=== PATIENT | male | born 1935 | race Caucasian/White ===

== ENCOUNTER 2019-08-03 14:55 | Emergency (ER) | payer MEDICARE ==
--- NOTE | 2019-08-03 15:19 | ED Physician Documentation ---
History of Present Illness - Stated complaint Stated Complaint: MHE - Additonal information Additional information: This is an 84-year-old male who presents with depression and suicidal ideation. Patient states that there is been a number of stressful things with his family recently. It sounds like he is not getting along with his in-laws, his son is diabetic and has been having some health issues, other family members in the intensive care unit. Patient lives by himself and is fairly isolated, he recently started Meals on Wheels, and he states that that interaction has been more helpful for him. He has never been a person and has had depression, but he states that he feels that he is getting old, and that he has been considering the end of his life recently. He states that he has many firearms at his home, will he does not have a plan to kill himself at this time, he states that it would be easy to shoot himself if he decided to. He recently was diagnosed with head lice, and he started some Nix treatment for that, and he thinks that this medication made him feel more "foggy headed", so he stopped using it. Otherwise he denies any new medications Review of Systems Constitutional: denies: Fever Eyes: denies: Loss of vision Cardiac: denies: Chest pain / pressure GI: denies: Abdominal Pain : denies: Dysuria Neurologic: denies: Generalized weakness Psychiatric: reports: Depressed PD PAST MEDICAL HISTORY - Past Medical History Cardiovascular: Atrial fibrillation Respiratory: None Endocrine/Autoimmune: None GI: None : Benign prostate hypertrophy HEENT: None Psych: None Musculoskeletal: Chronic back pain Derm: None - Past Surgical History Past Surgical History: Yes - Present Medications Home Medications: Ambulatory Orders Medication Instructions Recorded Confirmed Calcium Carbonate [Calcium] 600 mg PO DAILY 03/21/13 03/22/14 Cholestyramine [Cholestyramine 5 gm MC 03/21/13 03/22/14 Resin] Digoxin 250 mcg PO DAILY 03/21/13 08/03/19 Doxazosin [Cardura] 8 mg PO DAILY 03/21/13 08/03/19 Finasteride 5 mg PO DAILY 03/21/13 08/03/19 [place]-3/Dha/Epa/Fish Oil [Fish Oil] 1,000 mg PO DAILY 03/21/13 08/03/19 Pravastatin Sodium [Pravachol] 20 mg PO DAILY 03/21/13 08/03/19 Warfarin [Coumadin] 5 mg PO 1400 03/21/13 08/03/19 [id number] CD [Cardizem Cd] 180 mg PO DAILY 03/21/13 08/03/19 Melatonin 3 mg PO DAILY PM PRN #10 tablet 08/03/19 Tamsulosin [Flomax] 0.4 mg PO DAILY #14 capsule 08/03/19 - Allergies Allergies/Adverse Reactions: Allergies Allergy/AdvReac Type Severity Reaction Status Date / Time Penicillins Allergy Intermediate Respiratory Verified 08/03/19 15:20 Sulfa (Sulfonamide Allergy Intermediate Hives Verified 08/03/19 15:20 Antibiotics) - Social History Does the pt smoke?: No Smoking Status: Never smoker Does the pt drink ETOH?: No Does the pt have substance abuse?: No - Immunizations Immunizations are current?: Yes PD ED PE NORMAL - Vitals Vital signs reviewed: Yes - General General: Alert and oriented X 3, No acute distress - HEENT HEENT: PERRL - Neck Neck: Supple, no meningeal sign - Cardiac Cardiac: RRR - Respiratory Respiratory: No respiratory distress, Clear bilaterally - Abdomen Abdomen: Soft, Non tender - Derm Derm: Warm and dry - Extremities Extremities: No deformity - Neuro Neuro: Alert and oriented X 3, No motor deficit, No sensory deficit, Normal speech - Psych Psych: Other (Fairly normal affect, appropriate in conversation. No RSI. No current SI.) Results - Vitals Vitals: Oxygen O2 Source Room air - Labs Labs: Laboratory Tests 08/03/19 08/03/19 08/03/19 15:30 15:30 15:30 WBC 8.7 RBC 4.50 L Hgb 14.3 Hct 43.8 MCV 97.3 H MCH 31.8 H MCHC 32.6 RDW 12.5 Plt Count 185 MPV 8.9 Neut # (Auto) 6.1 Lymph # (Auto) 1.5 [place] # (Auto) 0.9 Eos # (Auto) 0.1 Baso # (Auto) 0.1 Absolute Nucleated RBC 0.00 Nucleated RBC % 0.0 Sodium 138 Potassium 4.3 Chloride 99 L Carbon Dioxide 29 Anion Gap 10.0 BUN 29 H Creatinine 1.0 Estimated GFR (MDRD) 72 L Glucose 104 H Calcium 9.4 Total Bilirubin 0.7 AST 22 ALT 19 Alkaline Phosphatase 56 Total Protein 7.6 Albumin 4.4 Globulin 3.2 Albumin/Globulin Ratio 1.4 Lipase 46 TSH 2.23 Urine Color Urine Clarity Urine pH Ur Specific [place] Urine Protein Urine Glucose (UA) Urine Ketones Urine Occult Blood Urine Nitrite Urine Bilirubin Urine Urobilinogen Ur Leukocyte Esterase Ur Microscopic Review Urine Culture Comments Salicylates < 6.0 Urine Opiates Screen Ur Oxycodone Screen Urine Methadone Screen Ur Propoxyphene Screen Acetaminophen < 10 L Ur Barbiturates Screen Ur Tricyclics Screen Ur Phencyclidine Scrn Ur Amphetamine Screen U Methamphetamines Scrn U Benzodiazepines Scrn Urine Cocaine Screen U Cannabinoids Screen Ethyl Alcohol < 5.0 08/03/19 15:35 WBC RBC Hgb Hct MCV MCH MCHC RDW Plt Count MPV Neut # (Auto) Lymph # (Auto) [place] # (Auto) Eos # (Auto) Baso # (Auto) Absolute Nucleated RBC Nucleated RBC % Sodium Potassium Chloride Carbon Dioxide Anion Gap BUN Creatinine Estimated GFR (MDRD) Glucose Calcium Total Bilirubin AST ALT Alkaline Phosphatase Total Protein Albumin Globulin Albumin/Globulin Ratio Lipase TSH Urine Color YELLOW Urine Clarity CLEAR Urine pH 5.5 Ur Specific [place] >=1.030 H Urine Protein NEGATIVE Urine Glucose (UA) NEGATIVE Urine Ketones NEGATIVE Urine Occult Blood NEGATIVE Urine Nitrite NEGATIVE Urine Bilirubin NEGATIVE Urine Urobilinogen 0.2 (NORMAL) Ur Leukocyte Esterase NEGATIVE Ur Microscopic Review NOT INDICATED Urine Culture Comments NOT INDICATED Salicylates Urine Opiates Screen NEGATIVE Ur Oxycodone Screen NEGATIVE Urine Methadone Screen NEGATIVE Ur Propoxyphene Screen NEGATIVE Acetaminophen Ur Barbiturates Screen NEGATIVE Ur Tricyclics Screen NEGATIVE Ur Phencyclidine Scrn NEGATIVE Ur Amphetamine Screen NEGATIVE U Methamphetamines Scrn NEGATIVE U Benzodiazepines Scrn NEGATIVE Urine Cocaine Screen NEGATIVE U Cannabinoids Screen NEGATIVE Ethyl Alcohol PD MEDICAL DECISION MAKING - ED course Complexity details: considered differential (Depression, SI, thyroid disturbance, substance use) ED course: Labs are unremarkable, TSH normal, UA without signs of infection. Talking with patient it sounds like he has been feeling stressed and isolated, and has been thinking about suicide from time to time, and although he is not suicidal at this time he does have access to firearms making him somewhat higher risk. He states these are locked away and he is planning to give them away. He is very insightful and reasonable on my interview. Social work was consulted, and de veloped a plan for safe discharge. Patient states that getting up to urinate and having poor sleep are negatively affecting his quality of life, and I will prescribe a short course of tamsulosin and melatonin to trial while he waits to follow up on these issues with his PCP. He is feeling upbeat and with this plan for close outpatient follow up and establishing with mental health provider he feels safe and social work also agrees that he is safe for discharge. I discussed return precautions and reviewed measures for safety with him once more, and he was discharged home. Departure - Departure Disposition: Home, Self Care Clinical Impression: Suicidal ideation Condition: Good Instructions: Suicide Warning Signs Self Follow-Up: Jake Cunha MD [Primary Care Provider] - Within 1 week Prescriptions: Melatonin 3 mg PO DAILY PM PRN #10 tablet PRN Reason: Insomnia Tamsulosin [Flomax] 0.4 mg PO DAILY #14 capsule Comments: You were seen today for some thoughts of suicide. If you develop any worsening feelings of suicide, or if you are thinking about hurting yourself, please call 911, or return to the emergency department. There is also a helpline/suicide prevention Lifeline at which you may call. You may try the Flomax for your urinary frequency at night, and the melatonin for your difficulty sleeping, please discuss these medications with your primary care provider. Please continue to keep your guns locked up, ideally in a way that you do not have access to them at all. Please follow-up with your primary care provider as soon as possible. Discharge Date/Time: 08/03/19 17:26
[2019-08-03 15:20] VITALS: BP 137/95
[2019-08-03 15:34] LABS: BASOPHILS # (AUTO) 0.1 10^3/uL (0.0-0.1); BASOPHILS % (AUTO) 0.7 %; EOSINOPHILS # (AUTO) 0.1 10^3/uL (0.0-0.7); EOSINOPHILS % (AUTO) 0.8 %; HGB - HEMOGLOBIN 14.3 g/dL (14.0-18.0); LYMPHOCYTES # (AUTO) 1.5 10^3/uL (1.5-3.5); LYMPHOCYTES % (AUTO) 17.8 %; MEAN CORPUSCULAR HEMOGLOBIN 31.8 pg (27.0-31.0); MEAN CORPUSCULAR HGB CONC 32.6 g/dL (32.0-36.0); MEAN CORPUSCULAR VOLUME 97.3 fL (80.0-94.0); MEAN PLATELET VOLUME 8.9 fL (7.4-11.4); MONOCYTES # (AUTO) 0.9 10^3/uL (0.0-1.0); MONOCYTES % (AUTO) 10.2 %; NEUTROPHILS # (AUTO) 6.1 10^3/uL (1.5-6.6); NEUTROPHILS % (AUTO) 70.2 %; PLT - PLATELET COUNT 185 10^3/uL (130-450); RED CELL DISTRIBUTION WIDTH 12.5 % (12.0-15.0); WHITE BLOOD COUNT 8.7 x10^3/uL (4.8-10.8)
[2019-08-03 15:45] LABS: MUDS CUTOFF CONCENTRATIONS CUTOFF CONC BELOW:
[2019-08-03 15:50] LABS: ACETAMINOPHEN < 10 ug/mL (10-30); ALBUMIN 4.4 g/dL (3.2-5.5); ALBUMIN/GLOBULIN RATIO 1.4 (1.0-2.2); ALKALINE PHOSPHATASE 56 IU/L (42-121); ALT ALANINE AMINOTRANSFERASE 19 IU/L (10-60); AST ASPARTATE AMINOTRANSFERASE 22 IU/L (10-42); BILIRUBIN,TOTAL 0.7 mg/dL (0.2-1.0); BUN - BLOOD UREA NITROGEN 29 mg/dL (6-20); CALCIUM 9.4 mg/dL (8.5-10.3); CARBON DIOXIDE - CO2 29 mmol/L (21-32); CHLORIDE 99 mmol/L (101-111); GFR - MDRD 72 (>89); GLUCOSE 104 mg/dL (70-100); LIPASE 46 U/L (22-51); SALICYLATE < 6.0 mg/dL; SODIUM 138 mmol/L (135-145); TOTAL PROTEIN 7.6 g/dL (6.7-8.2)
[2019-08-03 16:07] LABS: BILIRUBIN,URINE NEGATIVE (NEGATIVE); GLUCOSE, URINE (UA) NEGATIVE (NEGATIVE); KETONES,URINE (UA) NEGATIVE (NEGATIVE); LEUKOCYTE ESTERASE, URINE NEGATIVE (NEGATIVE); NITRITE,URINE NEGATIVE (NEGATIVE); OCCULT BLOOD,URINE NEGATIVE (NEGATIVE); PH,URINE 5.5 PH (5.0-7.5); PROTEIN,URINE NEGATIVE (NEGATIVE); UROBILINOGEN,URINE 0.2 (NORMAL) E.U./dL (NORMAL)
[2019-08-03 16:10] LABS: CLARITY,URINE CLEAR (CLEAR)
[2019-08-03 16:25] LABS: METHADONE SCREEN, URINE NEGATIVE (NEGATIVE); OXYCODONE SCREEN, URINE NEGATIVE (NEGATIVE); PROPOXYPHENE SCREEN, URINE NEGATIVE (NEGATIVE)
[2019-08-03 16:26] LABS: AMPHETAMINE SCREEN,URINE NEGATIVE (NEGATIVE); BENZODIAZEPINES SCREEN, URINE NEGATIVE (NEGATIVE); COCAINE SCREEN URINE NEGATIVE (NEGATIVE); METHAMPHETAMINES SCREEN, URINE NEGATIVE (NEGATIVE); OPIATE SCREEN, URINE NEGATIVE (NEGATIVE); TRICYCLIC ANTIDEPRESSANT,URINE NEGATIVE (NEGATIVE)
== END 2019-08-03 17:26 | disposition home or self-care (01) ==
LOC: ED 14:55
DX: R45.851 Suicidal ideations (principal); I48.91 Unspecified atrial fibrillation; Z79.01 Long term (current) use of anticoagulants
CPT/HCPCS: 36415; 80053; 80306; 80307; 80320; 80329; 81001; 81003; 83690; 84443; 85025; 87086; 99283

== ENCOUNTER 2019-08-22 11:23 | Outpatient (CLI) | payer MEDICARE ==
--- NOTE | 2019-08-23 00:59 | XRAY Report ---
Reason: COPD Procedure Date: 08/22/2019 Accession Number: [id number] / [id number] Procedure: XRN - Chest 2 View X-Ray CPT Code: 12241 Final Report FULL RESULT: EXAM: CHEST RADIOGRAPHY EXAM DATE: 08/22/2019 11:43 AM. CLINICAL HISTORY: COPD. COMPARISON: CHEST 2 VIEW PA/LAT 10/29/2015 11:32 AM. TECHNIQUE: 2 views. FINDINGS: Lungs/Pleura: No focal opacities evident. No pleural effusion. No pneumothorax. Normal volumes. Mediastinum: Mild cardiomegaly, increased compared to prior. No acute pulmonary findings are seen. IMPRESSION: Mild cardiomegaly, increased compared to prior. No acute pulmonary findings are seen. RADIA
== END 2019-08-22 11:24 | disposition home or self-care (01) ==
LOC: DI.N 11:23
PROVIDERS: ATTEND Internal Medicine
DX: J44.9 Chronic obstructive pulmonary disease, unspecified (principal); I51.7 Cardiomegaly
CPT/HCPCS: 71046

== ENCOUNTER 2019-09-12 11:48 | Outpatient (CLI) | payer MEDICARE ==
--- NOTE | 2019-09-13 09:19 | CT Report ---
Reason: COGNITIVE DECLINE Procedure Date: 09/12/2019 Accession Number: [id number] / [id number] Procedure: CT - HEAD WO CPT Code: Final Report FULL RESULT: EXAM: CT HEAD WITHOUT CONTRAST EXAM DATE: 09/12/2019 12:15 PM CLINICAL HISTORY: Cognitive decline.Priors: None. COMPARISON: None. TECHNIQUE: Multiaxial CT images were obtained from the foramen magnum to the vertex. Reformats: Sagittal and coronal. IV contrast: None. In accordance with CT protocol optimization, one or more of the following dose reduction techniques were utilized for this exam: automated exposure control, adjustment of mA and/or KV based on patient size, or use of iterative reconstructive technique. FINDINGS: Parenchyma: No acute intraparenchymal hemorrhage. No evidence of mass, midline shift. [place]arosa-white differentiation is distinct. Extraaxial Spaces: Basal cisterns are preserved. No subdural or epidural collections identified. Ventricles: Normal in size and position. Sinuses and Orbits: Imaged paranasal sinuses, orbits, and mastoids show no significant abnormality. Bones: No evidence of fracture or calvarial defect. Other: None. IMPRESSION: No acute intracranial abnormality. RADIA
== END 2019-09-12 11:49 | disposition home or self-care (01) ==
LOC: DI 11:48
PROVIDERS: ATTEND Internal Medicine
DX: R41.81 Age-related cognitive decline (principal); J44.9 Chronic obstructive pulmonary disease, unspecified
CPT/HCPCS: 70450

== ENCOUNTER 2019-10-04 10:00 | Emergency (ER) | payer MEDICARE ==
[2019-10-04 10:41] LABS: BASOPHILS # (AUTO) 0.1 10^3/uL (0.0-0.1); BASOPHILS % (AUTO) 0.7 %; EOSINOPHILS # (AUTO) 0.1 10^3/uL (0.0-0.7); EOSINOPHILS % (AUTO) 0.7 %; HGB - HEMOGLOBIN 15.4 g/dL (14.0-18.0); LYMPHOCYTES # (AUTO) 1.3 10^3/uL (1.5-3.5); LYMPHOCYTES % (AUTO) 16.8 %; MEAN CORPUSCULAR HEMOGLOBIN 33.3 pg (27.0-31.0); MEAN CORPUSCULAR HGB CONC 34.7 g/dL (32.0-36.0); MEAN CORPUSCULAR VOLUME 96.1 fL (80.0-94.0); MEAN PLATELET VOLUME 9.2 fL (7.4-11.4); MONOCYTES # (AUTO) 0.6 10^3/uL (0.0-1.0); MONOCYTES % (AUTO) 8.1 %; NEUTROPHILS # (AUTO) 5.5 10^3/uL (1.5-6.6); NEUTROPHILS % (AUTO) 73.3 %; PLT - PLATELET COUNT 176 10^3/uL (130-450); RED BLOOD COUNT 4.62 10^6/uL (4.70-6.10); RED CELL DISTRIBUTION WIDTH 12.1 % (12.0-15.0); WHITE BLOOD COUNT 7.4 x10^3/uL (4.8-10.8)
[2019-10-04 10:47] LABS: INR 2.4 (0.8-1.2)
[2019-10-04 10:54] LABS: ALBUMIN 4.3 g/dL (3.2-5.5); ALBUMIN/GLOBULIN RATIO 1.5 (1.0-2.2); BILIRUBIN,TOTAL 1.1 mg/dL (0.2-1.0); CREATININE 1.1 mg/dL (0.6-1.2); TOTAL PROTEIN 7.2 g/dL (6.7-8.2)
[2019-10-04] MEDS ORDERED: FAMOTIDINE 20 MG/2 ML VIAL IVP STA (11:21)
[2019-10-04] MEDS ORDERED: SODIUM CHLORIDE 0.9% 1,000 ML IV ONE (11:21)
[2019-10-04] MEDS ORDERED: ONDANSETRON 4 MG/2 ML VIAL IVP STA (11:21)
[2019-10-04] MEDS ORDERED: IOVERSOL 320 100 ML VIAL IVP ONE ×2 (11:26→11:49)
--- NOTE | 2019-10-04 12:05 | CT Report ---
Reason: nausea/weight loss/abd pains Procedure Date: 10/04/2019 Accession Number: [id number] / [id number] Procedure: CT - Abdomen/Pelvis W CPT Code: Final Report FULL RESULT: EXAM: CT ABDOMEN AND PELVIS EXAM DATE: 10/04/2019 11:48 AM. CLINICAL HISTORY: Nausea/weight loss/abd pains. COMPARISONS: None. TECHNIQUE: Routine helical CT imaging was performed through the abdomen and pelvis. IV contrast: OPTI 320 100ML. Enteric contrast: No. Reconstructions: Coronal and sagittal. In accordance with CT protocol optimization, one or more of the following dose reduction techniques were utilized for this exam: automated exposure control, adjustment of mA and/or KV based on patient size, or use of iterative reconstructive technique. FINDINGS: Lung Bases: Coronary artery calcifications. Liver: No masses. Gallbladder/Bile Ducts: Unremarkable. Spleen: Normal. Pancreas: Normal. Adrenal Glands: Normal. Kidneys: Left lower renal pole cyst measures 2.2 cm. Nonobstructive left renal calculus measures 0.3 cm. Peritoneal Cavity/Bowel: No evidence for small bowel obstruction. The appendix is well visualized and normal. Pelvic Organs: The bladder and visualized pelvic organs are within normal limits. Vasculature: Severe atherosclerotic calcifications of the infrarenal abdominal aorta, without evidence of aneurysm or dissection. Bones: No significant abnormality. Other: No lymphadenopathy. IMPRESSION: No CT evidence for acute intra-abdominal process. RADIA
[2019-10-04 12:24] LABS: BILIRUBIN,URINE NEGATIVE (NEGATIVE); GLUCOSE, URINE (UA) NEGATIVE (NEGATIVE); KETONES,URINE (UA) 15 mg/dL (NEGATIVE); LEUKOCYTE ESTERASE, URINE NEGATIVE (NEGATIVE); NITRITE,URINE NEGATIVE (NEGATIVE); OCCULT BLOOD,URINE NEGATIVE (NEGATIVE); PROTEIN,URINE NEGATIVE (NEGATIVE); UROBILINOGEN,URINE 1 (NORMAL) E.U./dL (NORMAL)
[2019-10-04 12:34] LABS: CLARITY,URINE CLEAR (CLEAR)
[2019-10-04 13:30] VITALS: BP 155/90
--- NOTE | 2019-10-04 14:10 | ED Physician Documentation ---
PD HPI ALTERED MENTAL STATUS - Stated complaint Stated Complaint: SHAKES/WEAKNESS - Chief complaint Chief Complaint: Neuro - History obtained from History obtained from: Patient, Friend - History of Present Illness Timing - onset: How many months ago (3-4) Timing - duration: Months Timing - details: Gradual onset Quality / character: Other (he has had less appetite, general weakness, poor intake, and poor sleep, accompanied by weight loss over the past few months. He says about 30 lb weight loss (about 4 lbs per week).) Associated symptoms: General weakness. No: Fever, Headache, Dyspnea, Cough, NVD (just no appetite) Contributing factors: Known dementia (developing). No: Recent med change (has been on same meds for long time. Had an antidepressant added about 2 months ago without improvement.) Basline status: Alert and oriented X 3, Ambulatory, Independent. No: Diminished alertness Similar symptoms before: No diagnosis Recently seen: Clinic (seen by PMD couple weeks ago without testing done, per patient.) Review of Systems Constitutional: denies: Fever, Chills, Myalgias Nose: denies: Rhinorrhea / runny nose, Congestion Throat: denies: Sore throat Respiratory: denies: Cough GI: denies: Nausea (but has had no appetite and says eating a small amount has him feeling full.), Vomiting, Diarrhea, Bloody / black stool Musculoskeletal: denies: Neck pain, Back pain Neurologic: reports: Generalized weakness. denies: Focal weakness, Numbness, Altered mental status, Headache Endocrine: reports: Weight loss. denies: Weight gain, Easy bruising / bleeding PD PAST MEDICAL HISTORY - Past Medical History Past Medical History: Yes Cardiovascular: Atrial fibrillation Respiratory: None Neuro: Alzhiemer's Endocrine/Autoimmune: None GI: None : Benign prostate hypertrophy HEENT: None Psych: None Musculoskeletal: Chronic back pain Derm: None - Past Surgical History Past Surgical History: Yes - Present Medications Home Medications: Ambulatory Orders Medication Instructions Recorded Confirmed Calcium Carbonate [Calcium] 600 mg PO DAILY 03/21/13 03/22/14 Cholestyramine [Cholestyramine 5 gm MC 03/21/13 03/22/14 Resin] Digoxin 250 mcg PO DAILY 03/21/13 08/03/19 Doxazosin [Cardura] 8 mg PO DAILY 03/21/13 08/03/19 Finasteride 5 mg PO DAILY 03/21/13 08/03/19 [place]-3/Dha/Epa/Fish Oil [Fish Oil] 1,000 mg PO DAILY 03/21/13 08/03/19 Pravastatin Sodium [Pravachol] 20 mg PO DAILY 03/21/13 08/03/19 Warfarin [Coumadin] 5 mg PO 1400 03/21/13 08/03/19 [id number] CD [Cardizem Cd] 180 mg PO DAILY 03/21/13 08/03/19 Melatonin 3 mg PO DAILY PM PRN #10 tablet 08/03/19 Tamsulosin [Flomax] 0.4 mg PO DAILY #14 capsule 08/03/19 Cholecalciferol (Vitamin D3) 2,000 unit PO DAILY #60 capsule 10/04/19 [Vitamin D] Famotidine 20 mg PO DAILY #30 tablet 10/04/19 - Allergies Allergies/Adverse Reactions: Allergies Allergy/AdvReac Type Severity Reaction Status Date / Time Penicillins Allergy Intermediate Respiratory Verified 10/04/19 10:07 Sulfa (Sulfonamide Allergy Intermediate Hives Verified 10/04/19 10:07 Antibiotics) - Social History Does the pt smoke?: No Smoking Status: Never smoker Does the pt drink ETOH?: No Does the pt have substance abuse?: No - Immunizations Immunizations are current?: Yes PD ED PE NORMAL - Vitals Vital signs reviewed: Yes - General General: Alert and oriented X 3, No acute distress, Well developed/nourished - HEENT HEENT: Ears normal, Moist mucous membranes, Pharynx benign - Neck Neck: Supple, no meningeal sign, No adenopathy - Cardiac Cardiac: RRR, No murmur - Respiratory Respiratory: Clear bilaterally - Abdomen Abdomen: Normal bowel sounds, Soft, Non tender, Non distended - Male Male : Deferred - Rectal Rectal: Deferred - Back Back: No CVA TTP - Derm Derm: Normal color, Warm and dry - Extremities Extremities: No deformity, No tenderness to palpate, No edema, No calf tenderness / cord - Neuro Neuro: Alert and oriented X 3, No motor deficit, Normal speech Eye Opening: Spontaneous Motor: Obeys Commands Verbal: Oriented GCS Score: 15 - Psych Psych: Normal mood Results - Vitals Vitals: Vital Signs - 24 hr 10/04/19 10/04/19 10/04/19 10:08 10:48 11:30 Temperature 36.5 C Heart Rate 93 68 68 Respiratory 15 16 16 Rate Blood Pressure 156/97 H 152/89 H 145/110 H O2 Saturation 96 98 96 10/04/19 10/04/19 10/04/19 12:48 13:29 13:40 Temperature 36.0 C L Heart Rate 98 88 Respiratory 9 L 15 Rate Blood Pressure 162/92 H 155/90 H O2 Saturation 18 L 99 Oxygen O2 Source Room air - Labs Labs: Laboratory Tests 10/04/19 10/04/19 10/04/19 10:11 10:19 10:19 WBC 7.4 RBC 4.62 L Hgb 15.4 Hct 44.4 MCV 96.1 H MCH 33.3 H MCHC 34.7 RDW 12.1 Plt Count 176 MPV 9.2 Neut # (Auto) 5.5 Lymph # (Auto) 1.3 L [place] # (Auto) 0.6 Eos # (Auto) 0.1 Baso # (Auto) 0.1 Absolute Nucleated RBC 0.00 Nucleated RBC % 0.0 PT 26.0 H INR 2.4 H Sodium Potassium Chloride Carbon Dioxide Anion Gap BUN Creatinine Estimated GFR (MDRD) Glucose POC Whole Bld Glucose 95 Lactic Acid Calcium Magnesium Total Bilirubin AST ALT Alkaline Phosphatase Troponin I High Sens B-Natriuretic Peptide Total Protein Albumin Globulin Albumin/Globulin Ratio Lipase TSH Urine Color Urine Clarity Urine pH Ur Specific [place] Urine Protein Urine Glucose (UA) Urine Ketones Urine Occult Blood Urine Nitrite Urine Bilirubin Urine Urobilinogen Ur Leukocyte Esterase Ur Microscopic Review Urine Culture Comments 10/04/19 10/04/19 10/04/19 10:19 12:05 12:22 WBC RBC Hgb Hct MCV MCH MCHC RDW Plt Count MPV Neut # (Auto) Lymph # (Auto) [place] # (Auto) Eos # (Auto) Baso # (Auto) Absolute Nucleated RBC Nucleated RBC % PT INR Sodium 139 Potassium 3.9 Chloride 101 Carbon Dioxide 28 Anion Gap 10.0 BUN 27 H Creatinine 1.1 Estimated GFR (MDRD) 64 L Glucose 95 POC Whole Bld Glucose Lactic Acid Calcium 9.0 Magnesium 2.0 Total Bilirubin 1.1 H AST 21 ALT 17 Alkaline Phosphatase 48 Troponin I High Sens B-Natriuretic Peptide Total Protein 7.2 Albumin 4.3 Globulin 2.9 Albumin/Globulin Ratio 1.5 Lipase 46 TSH Urine Color YELLOW Urine Clarity CLEAR Urine pH 7.0 Ur Specific [place] 1.010 Urine Protein NEGATIVE Urine Glucose (UA) NEGATIVE Urine Ketones 15 H Urine Occult Blood NEGATIVE Urine Nitrite NEGATIVE Urine Bilirubin NEGATIVE Urine Urobilinogen 1 (NORMAL) Ur Leukocyte Esterase NEGATIVE Ur Microscopic Review NOT INDICATED Urine Culture Comments NOT INDICATED 10/04/19 10/04/19 10/04/19 12:22 12:22 12:22 WBC RBC Hgb Hct MCV MCH MCHC RDW Plt Count MPV Neut # (Auto) Lymph # (Auto) [place] # (Auto) Eos # (Auto) Baso # (Auto) Absolute Nucleated RBC Nucleated RBC % PT INR Sodium Potassium Chloride Carbon Dioxide Anion Gap BUN Creatinine Estimated GFR (MDRD) Glucose POC Whole Bld Glucose Lactic Acid 1.1 Calcium Magnesium Total Bilirubin AST ALT Alkaline Phosphatase Troponin I High Sens 10.6 B-Natriuretic Peptide 177 H Total Protein Albumin Globulin Albumin/Globulin Ratio Lipase TSH Urine Color Urine Clarity Urine pH Ur Specific [place] Urine Protein Urine Glucose (UA) Urine Ketones Urine Occult Blood Urine Nitrite Urine Bilirubin Urine Urobilinogen Ur Leukocyte Esterase Ur Microscopic Review Urine Culture Comments 10/04/19 12:22 WBC RBC Hgb Hct MCV MCH MCHC RDW Plt Count MPV Neut # (Auto) Lymph # (Auto) [place] # (Auto) Eos # (Auto) Baso # (Auto) Absolute Nucleated RBC Nucleated RBC % PT INR Sodium Potassium Chloride Carbon Dioxide Anion Gap BUN Creatinine Estimated GFR (MDRD) Glucose POC Whole Bld Glucose Lactic Acid Calcium Magnesium Total Bilirubin AST ALT Alkaline Phosphatase Troponin I High Sens B-Natriuretic Peptide Total Protein Albumin Globulin Albumin/Globulin Ratio Lipase TSH 0.76 Urine Color Urine Clarity Urine pH Ur Specific [place] Urine Protein Urine Glucose (UA) Urine Ketones Urine Occult Blood Urine Nitrite Urine Bilirubin Urine Urobilinogen Ur Leukocyte Esterase Ur Microscopic Review Urine Culture Comments PD MEDICAL DECISION MAKING - ED course Complexity details: reviewed results, considered differential (will check labs to see causes for weight loss. Also consider depression/anxiety as possible cause. ), d/w patient Departure - Departure Disposition: Home, Self Care Clinical Impression: Weight loss, Generalized weakness, Poor appetite Depression Qualifiers: Depression Type: unspecified Qualified Code(s): F32.9 - Major depressive disorder, single episode, unspecified Condition: Stable Record reviewed to determine appropriate education?: Yes Follow-Up: Jake Cunha MD [Primary Care Provider] - Prescriptions: Cholecalciferol (Vitamin D3) [Vitamin D] 2,000 unit PO DAILY #60 capsule Famotidine 20 mg PO DAILY #30 tablet Comments: Continue your current medications. We did not identify any obvious abnormality on your CT scan and blood tests or urine test. Follow-up with your primary care regarding further evaluation. Sometimes a lack of appetite can relate to it irritation of the stomach so would suggest an acid reducing medicine such as famotidine daily for the next month. Your symptoms may also relate to depression or anxiety in a simple addition would be vitamin D 3 supplement daily as well. Encourage staying well-hydrated and some food regularly if even nutritional supplements such as protein shakes etc. Discharge Date/Time: 10/04/19 14:15
== END 2019-10-04 14:15 | disposition home or self-care (01) ==
LOC: ED 10:00
DX: R63.4 Abnormal weight loss (principal); R63.0 Anorexia; R53.1 Weakness; F32.9 Major depressive disorder, single episode, unspecified; G30.9 Alzheimer's disease, unspecified; F02.80 Dementia in other diseases classified elsewhere, unspecified severity, without behavioral disturbance, psychotic disturbance, mood disturbance, and anxiety; I48.91 Unspecified atrial fibrillation; Z79.01 Long term (current) use of anticoagulants
CPT/HCPCS: 36415; 74177; 80053; 81003; 83605; 83690; 83735; 83880; 84443; 84484; 85025; 85610; 96361; 96374; 96375; 99284; Q9967; 81001; 87086